=== PATIENT | male | born 1985 | race Caucasian/White ===

== ENCOUNTER 2016-11-27 15:03 | Emergency (ER) | payer MEDICAID ==
[~2016-11-27] VITALS: Ht 175.3 cm; Wt 91.2 kg
[2016-11-27 16:47] LABS: BASOPHIL % 0.1 % (0-2); PLATELET COUNT 212 x10^3mcL (130-400); RED CELL DISTRIBUTION WIDTH 12.6 % (11.5-14.5)
[2016-11-27 17:05] VITALS: BP 109/76
[2016-11-27 17:07] LABS: CALCIUM 8.5 mg/dL (8.5-10.1); CARBON DIOXIDE 30.9 mmol/L (21-32); CHLORIDE SERUM 103 mmol/L (98-107); CREATININE SERUM 1.2 mg/dL (0.7-1.3); GFR1 > 60 mL/min; GLUCOSE SERUM 104 mg/dL (74-106); POTASSIUM SERUM 3.5 mmol/L (3.5-5.1); SODIUM SERUM 140 mmol/L (136-145)
[2016-11-27 17:12] LABS: ALBUMIN 3.8 g/dL (3.4-5.0); ALKALINE PHOSPHATASE 64 U/L (46-116); ALT/SGPT 36 U/L (16-63); AST/SGOT 25 U/L (15-37); BILIRUBIN TOTAL 0.5 mg/dL (0.20-1.00); LIPASE 100 IU/L (73-393); MAGNESIUM 1.7 mg/dL (1.8-2.4); TOTAL PROTEIN, SERUM 7.4 g/dL (6.4-8.2)
== END 2016-11-27 17:58 | disposition home or self-care (01) ==
LOC: ED 15:03
PROVIDERS: Emergency Medicine
DX: R11.10 Vomiting, unspecified (principal); R19.7 Diarrhea, unspecified; R10.9 Unspecified abdominal pain
CPT/HCPCS: J2405; J7030

== ENCOUNTER 2016-12-12 11:16 | Emergency (ER) | payer MEDICAID ==
[~2016-12-12] VITALS: Ht 175.3 cm; Wt 91.6 kg
[2016-12-12 11:29] VITALS: BP 110/70
== END 2016-12-12 12:49 | disposition home or self-care (01) ==
LOC: ED 11:16
DX: S31.813A Puncture wound without foreign body of right buttock, initial encounter (principal); X58.XXXA Exposure to other specified factors, initial encounter; Y93.89 Activity, other specified; Y92.89 Other specified places as the place of occurrence of the external cause; Y99.8 Other external cause status
CPT/HCPCS: 90715

== ENCOUNTER 2018-09-10 11:19 | Emergency (ER) | payer MEDICAID ==
[~2018-09-10] VITALS: Ht 175.3 cm; Wt 98.4 kg
[2018-09-10 11:38] VITALS: Ht 175.3 cm; Wt 98.4 kg
[2018-09-10 16:03] VITALS: BP 134/96
== END 2018-09-10 16:03 | disposition home or self-care (01) ==
LOC: ED 11:19
DX: J02.9 Acute pharyngitis, unspecified (principal)
CPT/HCPCS: 87804; J7512